=== PATIENT | female | born 1990 | race Caucasian/White ===

== ENCOUNTER 2018-06-15 13:46 | Emergency (ER) | payer SELFPAY ==
[~2018-06-15] VITALS: Ht 167.6 cm; Wt 142.9 kg
--- NOTE | 2018-06-15 14:56 | PHYS DOC ---
Adult General Chief Complaint Chief Complaint: VISION PROBLEM HPI HPI 28 yo female presents with neck mass. Patient was seen at [facility] yesterday and was told that it was likely a lipoma but they weren't sure. They were going to admit her but then they did not. The patient comes in today because she is concerned this needs further workup. She does not have insurance. She feels like there might be something in her throat is concerned this mass is bigger than she realizes. 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 She's had a total hysterectomy. 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 She has not had any follow-up due to no insurance. She denies fever or chills. She may be having some shortness of breath when she lies down, but this is mostly what her roommate has told her versus how she feels. Roommate told her that she turned blue last night. Review of Systems Review of Systems Constitutional: Denies fever or chills [] Eyes: Denies change in visual acuity, redness, or eye pain [] HENT: Denies nasal congestion or sore throat. She feels like there is a lump in her throat. Posterior neck mass [] Respiratory: Denies cough or shortness of breath [] Cardiovascular: No additional information not addressed in HPI [] GI: Denies abdominal pain, nausea, vomiting, bloody stools or diarrhea [] : Denies dysuria or hematuria [] Musculoskeletal: Denies back pain or joint pain [] Integument: Denies rash or skin lesions [] Neurologic: Denies headache, focal weakness or sensory changes [] Endocrine: Denies polyuria or polydipsia [] All other systems were reviewed and found to be within normal limits, except as documented in this note. Allergies Allergies Allergies Coded Allergies Type Severity Reaction Last Updated Verified coconut oil Allergy Unknown 06/15/18 Yes fentanyl Allergy Unknown 06/15/18 Yes Uncoded Allergies Type Severity Reaction Last Updated Verified contrast dye Allergy Unknown 06/15/18 seafood Allergy Unknown 06/15/18 Physical Exam Physical Exam Constitutional: Well developed, well nourished, no acute distress, non-toxic appearance. [] HENT: Normocephalic, atraumatic, bilateral external ears normal, oropharynx moist, no oral exudates, nose normal. [] Eyes: PERRLA, EOMI, conjunctiva normal, no discharge. [] Neck: Normal range of motion, no tenderness, supple, no stridor. Patient has a 1.5 cm firm but mobile mass just left of her C7 vertebrae. It feels consistent with lipoma, but there is considerable overlying fat pad. [] Cardiovascular:Heart rate regular rhythm, no murmur [] Lungs & Thorax: Bilateral breath sounds clear to auscultation [] Abdomen: Bowel sounds normal, soft, no tenderness, no masses, no pulsatile masses. [] Skin: Warm, dry, no erythema, no rash. [] Back: No tenderness, no CVA tenderness. [] Extremities: No tenderness, no cyanosis, no clubbing, ROM intact, no edema. [] Neurologic: Alert and oriented X 3, normal motor function, normal sensory function, no focal deficits noted. [] Psychologic: Affect normal, judgement normal, mood normal. [] EKG EKG [] Radiology/Procedures Radiology/Procedures [] Impressions: CT SOFT TISSUE NECK WO CONTRST Indication: Lipoma or mass at the posterior neck, at about C5, has become larger in the last month. Patient is asymptomatic. Exposure: One or more of the following individualized dose reduction techniques were utilized for this examination: 1. Automated exposure control 2. Adjustment of the mA and/or kV according to patient size 3. Use of iterative reconstruction technique. Comparison: None are available. Contrast: None due to history of allergy FINDINGS: Soft tissue within the left maxillary sinus compatible with a polyp or mucous retention cyst. There is a fatty mass in the left deep posterior neck, just to the left of midline, at about the level of C5. Measures 4.1 cm x 2.7 cm x 3.6 cm. Contains homogeneous fatty density without solid nonfatty component. This is immediately superficial to the left trapezius muscle. Lung apices are clear. Central venous catheter identified in the right internal jugular vein and superior vena cava, partially visualized. No significant lymph node enlargement. Small hypodense nodule of the right thyroid gland measures 8 mm. IMPRESSION: 1. Fatty mass superficial to the left trapezius muscle, just to the left of the midline, compatible with a lipoma. 2. 8 mm hypodense right thyroid nodule. Electronically signed by: Fan Jack MD (06/15/2018 3:55 PM) [facility] DICTATED AND SIGNED BY: FAN JACK MD DATE: 06/15/18 1542 CC: JOSE GILBERT DO; PCP,GORAN ~ Course & Med Decision Making Course & Med Decision Making Pertinent Labs and Imaging studies reviewed. (See chart for details) Patient's CT shows a mass just posterior to the trapezius muscle. However skin also shows likelihood of lipoma. It was able review the [facility] documentation and they're concerned as they cannot definitively rule out liposarcoma and do recommend an outpatient MRI with contrast. I discussed this possibility with the patient as well as does having a biopsy. Patient will work on getting insurance and find a primary physician to coordinate these exams. Her labs are unremarkable. She is stable for discharge at this time. [] Dragon Disclaimer Dragon Disclaimer This electronic medical record was generated, in whole or in part, using a voice recognition dictation system. Departure Departure: Referrals: PCPGORAN (PCP) JOSE GILBERT DO Jun 15, 2018 14:56
[2018-06-15 15:22] LABS: BASO # 0.1 x10^3/uL (0.0-0.2); BASO % 1 % (0-3); EOS % 0 % (0-3); HEMATOCRIT 40.3 % (36.0-47.0); HEMOGLOBIN 13.5 g/dL (12.0-15.5); LYMPH # 0.8 x10^3/uL (1.0-4.8); LYMPH % 8 % (24-48); MEAN CORPUSCULAR HEMOGLOBIN 29 pg (25-35); MEAN CORPUSCULAR HGB CONC 34 g/dL (31-37); MEAN CORPUSCULAR VOLUME 85 fL (79-100); MONO # 0.3 x10^3/uL (0.0-1.1); MONO % 3 % (0-9); NEUT % 89 % (31-73); PLATELET COUNT 369 x10^3/uL (140-400); RED BLOOD COUNT 4.72 x10^6/uL (3.50-5.40); RED CELL DISTRIBUTION WIDTH 13.7 % (11.5-14.5); WHITE BLOOD COUNT 10.1 x10^3/uL (4.0-11.0)
[2018-06-15 15:34] LABS: ALBUMIN 3.6 g/dL (3.4-5.0); ALBUMIN/GLOBULIN RATIO 0.8 (1.0-1.7); CALCIUM 9.8 mg/dL (8.5-10.1); CREATININE 0.8 mg/dL (0.6-1.0); GFR 86.7; POTASSIUM 3.9 mmol/L (3.5-5.1); TOTAL BILIRUBIN 0.6 mg/dL (0.2-1.0); TOTAL PROTEIN 8.1 g/dL (6.4-8.2)
--- NOTE | 2018-06-15 15:59 | RAD ---
CT SOFT TISSUE NECK WO CONTRST Indication: Lipoma or mass at the posterior neck, at about C5, has become larger in the last month. Patient is asymptomatic. Exposure: One or more of the following individualized dose reduction techniques were utilized for this examination: 1. Automated exposure control 2. Adjustment of the mA and/or kV according to patient size 3. Use of iterative reconstruction technique. Comparison: None are available. Contrast: None due to history of allergy FINDINGS: Soft tissue within the left maxillary sinus compatible with a polyp or mucous retention cyst. There is a fatty mass in the left deep posterior neck, just to the left of midline, at about the level of C5. Measures 4.1 cm x 2.7 cm x 3.6 cm. Contains homogeneous fatty density without solid nonfatty component. This is immediately superficial to the left trapezius muscle. Lung apices are clear. Central venous catheter identified in the right internal jugular vein and superior vena cava, partially visualized. No significant lymph node enlargement. Small hypodense nodule of the right thyroid gland measures 8 mm. IMPRESSION: 1. Fatty mass superficial to the left trapezius muscle, just to the left of the midline, compatible with a lipoma. 2. 8 mm hypodense right thyroid nodule. Electronically signed by: Anupam Jack MD (06/15/2018 3:55 PM) [facility]
[2018-06-15 16:23] VITALS: BP 147/90
== END 2018-06-15 16:23 | disposition home or self-care (01) ==
LOC: ER 13:46
DX: R22.1 Localized swelling, mass and lump, neck (principal); E04.1 Nontoxic single thyroid nodule; Z88.8 Allergy status to other drugs, medicaments and biological substances; Z91.048 Other nonmedicinal substance allergy status; Z90.710 Acquired absence of both cervix and uterus
CPT/HCPCS: 36415; 70490; 80053; 85025; 99285-25

== ENCOUNTER 2018-08-29 19:15 | Emergency (ER) | payer SELFPAY ==
[~2018-08-29] VITALS: Ht 170.2 cm; Wt 150.0 kg
--- NOTE | 2018-08-29 19:53 | PHYS DOC ---
Past History Past Medical History: Anxiety, Cancer Past Surgical History: Appendectomy, Cholecystectomy, Hysterectomy, Oophorectomy, Tonsillectomy, Other Adult General Chief Complaint Chief Complaint: FLU SYMPTOM HPI HPI Patient is a 28 year old female who presents with complaint of cough, headache, and body aches. Patient states that her symptoms started 13 days ago. The patient states that she has had a migraine headache over the past 13 days and has been having intermittent fever during that time. Patient states her last fever was measured this morning at 101F. Patient states she took ibuprofen at that time and last took 650 mg of Tylenol 6 hours ago. Patient denies any chest pain or abdominal pain. Patient states that her cough has been productive of greenish sputum. Denies sore throat or nasal congestion. Headache is concentrated on the occipital scalp. Describes it as throbbing. Has also had intermittent loose stools but no vomiting. No recent travel. Review of Systems Review of Systems Constitutional: Fever, chills, myalgias[] Eyes: Denies change in visual acuity, redness, or eye pain [] HENT: Denies nasal congestion or sore throat [] Respiratory: Productive cough, denies shortness of breath[] Cardiovascular: Denies chest pain or edema[] GI: Diarrhea, denies abdominal pain, nausea, vomiting, or bloody stools[] : Denies dysuria or hematuria [] Musculoskeletal: Myalgias[] Integument: Denies rash or skin lesions [] Neurologic: Denies headache, focal weakness or sensory changes [] All other systems were reviewed and found to be within normal limits, except as documented in this note. Allergies Allergies Allergies Coded Allergies Type Severity Reaction Last Updated Verified cyclobenzaprine Allergy Severe 08/29/18 Yes ondansetron Allergy Severe Anaphylaxis 08/29/18 Yes Iodinated Contrast- Oral and IV Dye Allergy Intermediate 08/29/18 Yes coconut oil Allergy Intermediate 08/29/18 Yes fentanyl Allergy Intermediate 08/29/18 Yes latex Allergy Intermediate 08/29/18 Yes shellfish derived Allergy Intermediate 08/29/18 Yes Physical Exam Physical Exam Constitutional: Alert, afebrile, appears in moderate discomfort. [] HENT: Normocephalic, atraumatic, bilateral external ears normal, oropharynx moist, no oral exudates, nose normal. [] Eyes: PERRLA, EOMI, photophobia present, conjunctiva normal, no discharge. [] Neck: Normal range of motion, no tenderness, supple, no stridor. [] Cardiovascular: Tachycardia, regular rhythm, no murmur [] Lungs & Thorax: Bilateral breath sounds clear to auscultation [] Abdomen: Bowel sounds normal, soft, no tenderness, no masses, no pulsatile masses. [] Skin: Warm, dry, no erythema, no rash. [] Back: No tenderness, no CVA tenderness. [] Extremities: No tenderness, no cyanosis, no clubbing, ROM intact, no edema. [] Neurologic: Alert and oriented X 3, normal motor function, normal sensory function, no focal deficits noted. [] Current Patient Data Vital Signs Vital Signs Date Time Temp Pulse Resp B/P (MAP) Pulse Ox O2 Delivery O2 Flow Rate FiO2 08/29/18 19:20 98.5 111 22 99 Room Air Lab Results Laboratory Tests Test 08/29/18 19:20 Urine Collection Type Unknown Urine Color Straw Urine Clarity Clear Urine pH 7.5 Urine Specific [place] 1.015 Urine Protein Neg Urine Glucose (UA) Neg mg/dL Urine Ketones (Stick) Neg mg/dL Urine Blood Neg Urine Nitrite Neg Urine Bilirubin Neg Urine Urobilinogen Dipstick 0.2 mg/dL Urine Leukocyte Esterase Neg Urine RBC Occ /HPF Urine WBC 1-4 /HPF Urine Squamous Epithelial Cells Occ /LPF Urine Bacteria Few /HPF Urine Yeast Present /HPF Current Medications Medications (Trade) Dose Ordered Sig/Melva Route PRN Reason Start Time Stop Time Status Last Admin Dose Admin Sodium Chloride (Normal Saline Flush) 10 ml QSHIFT PRN IV AFTER MEDS AND BLOOD DRAWS 08/29/18 19:45 Sodium Chloride 1,000 ml @ 1,860 mls/hr Q33M IV 08/29/18 20:00 08/29/18 21:00 DC Ketorolac Tromethamine (Toradol 30mg Vial) 30 mg 1X ONCE IV 08/29/18 20:00 08/29/18 21:50 DC Ketorolac Tromethamine (Toradol Im) 60 mg 1X ONCE IM 08/29/18 21:45 08/29/18 22:00 DC 08/29/18 21:57 Levofloxacin (Levaquin) 750 mg 1X STAT PO 08/29/18 21:45 08/29/18 22:00 DC 08/29/18 21:57 Alprazolam (Xanax) 2 mg 1X ONCE PO 08/29/18 21:45 08/29/18 22:00 DC 08/29/18 21:45 Alprazolam (Xanax) 0.25 mg STK-MED ONCE .ROUTE 08/29/18 21:52 08/29/18 21:54 DC Alprazolam (Xanax) 2 mg 1X ONCE PO 08/29/18 22:15 08/29/18 22:16 DC 08/29/18 22:15 EKG EKG Rhythm strip interpretation by me: Heart rate 96, sinus rhythm, no ectopy[] Radiology/Procedures Radiology/[place] [address] IMAGING REPORT Signed PATIENT: ROBERTO JORDAN V ACCOUNT: [id number] : 1990 LOCATION: ER AGE: 28 SEX: F EXAM STATUS: REG ER ORD. PHYSICIAN: TIMBO MITCHELL MD REASON: cough PROCEDURE: PORTABLE CHEST 1V Indication:Cough, hx asthma
TECHNIQUE:Portable AP chest X-ray COMPARISON:None FINDINGS: Left chest wall Chemo-Port is seen with its tip in the SVC. Heart is normal in size. Prominent bronchovascular markings are seen. No focal consolidation or other lung abnormalities. Visualized bony thorax is within normal limits. IMPRESSION: Prominent bronchovascular markings may be secondary to bronchitis. Electronically signed by: Krishna Ashton DO (08/29/2018 9:02 PM) [facility] DICTATED AND SIGNED BY: KRISHNA ASHTON DO DATE: 08/29/182100 CC: TIMBO MITCHELL MD; NON,STAFF ~ [] Course & Med Decision Making Course & Med Decision Making Pertinent Labs and Imaging studies reviewed. (See chart for details) After speaking with patient, we initially agreed to check blood work, however the patient proved to be a very hard stick while in the emergency department. This is due to her previous cancer treatments and multiple blood draws in the past. After multiple failed attempts, the patient stated that she no longer wanted to receive any needle sticks and stated that she did not feel she needed he of blood work. Patient states that she feels well enough to receive treatment and would like to go home after treatment. The patient's symptoms were treated with IM Toradol and oral Xanax. Patient given additional Fioricet for migraine headache. Patient's chest x-ray shows evidence of bronchitis. Given the chronicity of symptoms and concern for development of pneumonia, the patient was started on oral Levaquin for treatment. Prescribed Levaquin and Fioricet for outpatient treatment. Recommended follow-up in the next 3-4 days with primary doctor for reevaluation and return to emergency department for any worsening symptoms. Patient was understanding and agreement with treatment plan. [] Dragon Disclaimer Dragon Disclaimer This electronic medical record was generated, in whole or in part, using a voice recognition dictation system. Departure Departure: Impression: Primary Impression: Cough in adult Additional Impression: Migraine headache Disposition: 01 HOME, SELF-CARE Condition: IMPROVED Referrals: NON,STAFF (PCP) Patient Instructions: Cough, Adult, Migraine Headache Additional Instructions: Follow-up the primary doctor in 3-4 days for reevaluation. Return to emergency department for any worsening symptoms. Scripts Butalb/Acetaminophen/Caffeine ([id number] 50-325-40) 1 Each Tablet 1 EACH PO Q6HRS PRN for HEADACHE, #20 TAB Prov: TIMBO MITCHELL MD 08/29/18 Levofloxacin (LEVAQUIN) 750 Mg Tablet 1 TAB PO DAILY, #5 TAB Prov: TIMBO MITCHELL MD 08/29/18 Problem Qualifiers Additional Impression: Migraine headache Migraine type: unspecified Status migrainosus presence: with status migrainosus Intractability: not intractable Qualified Codes: G43.901 - Migraine, unspecified, not intractable, with status migrainosus TIMBO MITCHELL MD Aug 29, 2018 19:53
[2018-08-29] MEDS: IV NORMAL SALINE 1,000ML 1,000 ML IV SCH ×2 (20:00→20:33)
[2018-08-29] MEDS ORDERED: KETOROLAC 30 MG/ML VIAL. IV ONE (20:00)
[2018-08-29] MEDS ORDERED: ALPR2TAB2 PO (20:51)
[2018-08-29] MEDS ORDERED: DIPH25CA58 PO (20:51)
[2018-08-29] MEDS ORDERED: ZOLP12.52 PO (20:51)
--- NOTE | 2018-08-29 21:06 | RAD ---
Indication:Cough, hx asthma
TECHNIQUE:Portable AP chest X-ray COMPARISON:None FINDINGS: Left chest wall Chemo-Port is seen with its tip in the SVC. Heart is normal in size. Prominent bronchovascular markings are seen. No focal consolidation or other lung abnormalities. Visualized bony thorax is within normal limits. IMPRESSION: Prominent bronchovascular markings may be secondary to bronchitis. Electronically signed by: Krishna Chaudhary DO (08/29/2018 9:02 PM) [facility]
[2018-08-29 21:13] LABS: BACTERIA,URINE FEW /HPF (0-FEW); BILIRUBIN,URINE NEG (NEG); CLARITY,URINE CLEAR; COLOR,URINE STRAW; GLUCOSE,URINE NEG (NEG); NITRITE,URINE NEG (NEG); SQUAMOUS EPITHELIAL CELL,UR OCC /LPF; UROBILINOGEN,URINE 0.2 mg/dL (0.2 mg/dL); YEAST,URINE PRESENT /HPF
[2018-08-29 21:14] LABS: RBC,URINE OCC /HPF (0-2)
[2018-08-29] MEDS ORDERED: levoFLOXacin 750 MG TABLET PO STA (21:45)
[2018-08-29] MEDS ORDERED: KETOROLAC 60 MG/2 ML VIAL. IM ONE (21:45)
[2018-08-29] MEDS ORDERED: ALPRAZolam 0.5 MG TABLET PO ONE (21:45)
[2018-08-29] MEDS: 0.9 % SODIUM CHLORIDE 10 ML DISP.SYRIN. IV PRN ×2 (21:50→22:22)
[2018-08-29] MEDS ORDERED: ALPRAZolam 0.25 MG TABLET ONE (21:52)
[2018-08-29] MEDS ORDERED: ALPRAZolam 0.25 MG TABLET PO ONE (22:15)
[2018-08-29] MEDS ORDERED: BUTA1TAB23 PO (22:33)
[2018-08-29] MEDS ORDERED: LEVO750T31 PO (22:33)
[2018-08-29 23:00] VITALS: BP 117/76
[2018-08-29] MEDS ORDERED: BUTALB/APAP/CAFEIN 50/325/40MG TABLET. PO ONE (23:00)
[2018-08-30] MEDS ORDERED: PRED-220 PO (22:09)
== END 2018-08-29 23:05 | disposition home or self-care (01) ==
LOC: ER 19:15
DX: G43.901 Migraine, unspecified, not intractable, with status migrainosus (principal); J40 Bronchitis, not specified as acute or chronic; J45.909 Unspecified asthma, uncomplicated; F41.9 Anxiety disorder, unspecified; Z91.041 Radiographic dye allergy status; Z91.040 Latex allergy status; Z91.013 Allergy to seafood; Z88.8 Allergy status to other drugs, medicaments and biological substances; Z91.048 Other nonmedicinal substance allergy status
CPT/HCPCS: 71045; 81001; 96372; 99284; J1885

== ENCOUNTER 2018-08-30 15:31 | Emergency (ER) | payer SELFPAY ==
[~2018-08-30] VITALS: Ht 170.2 cm; Wt 150.0 kg
[~2018-08-30 15:31] MED LIST: ALPR2TAB2 PO; BUTA1TAB23 PO; DIPH25CA58 PO; LEVO750T31 PO; ZOLP12.52 PO
--- NOTE | 2018-08-30 16:01 | PHYS DOC ---
Past History Past Medical History: Asthma, Other Past Surgical History: Appendectomy, Hysterectomy, Other Alcohol Use: None Drug Use: None Adult General Chief Complaint Chief Complaint: COUGH HPI HPI Patient is a 28-year-old female who presents with complaint of productive cough with small amount of blood that she saw this morning. Patient states that she had also gone to the bathroom today and had a syncopal episode in the bathroom. Patient states that she was seen here yesterday and was prescribed antibiotics. Patient states that she doesn't feel like she is getting any better. Review of Systems Review of Systems Constitutional: Denies fever or chills [] Respiratory: Complains of cough and shortness of breath [] Cardiovascular: No additional information not addressed in HPI [] GI: Denies abdominal pain, nausea, vomiting or diarrhea [] Musculoskeletal: Denies back pain or joint pain [] Integument: Denies rash or skin lesions [] All other systems were reviewed and found to be within normal limits, except as documented in this note. Current Medications Current Medications Current Medications Medications (Trade) Dose Ordered Sig/Melva Start Time Stop Time Status Last Admin Dose Admin Albuterol/ Ipratropium (Duoneb) 3 ml 1X ONCE 08/30/18 16:00 08/30/18 16:01 UNV Allergies Allergies Allergies Coded Allergies Type Severity Reaction Last Updated Verified cyclobenzaprine Allergy Severe 08/29/18 Yes ondansetron Allergy Severe Anaphylaxis 08/29/18 Yes Iodinated Contrast- Oral and IV Dye Allergy Intermediate 08/29/18 Yes coconut oil Allergy Intermediate 08/29/18 Yes fentanyl Allergy Intermediate 08/29/18 Yes latex Allergy Intermediate 08/29/18 Yes shellfish derived Allergy Intermediate 08/29/18 Yes Physical Exam Physical Exam Constitutional: Well developed, well nourished, no acute distress, non-toxic appearance. [] HENT: Normocephalic, atraumatic, bilateral external ears normal, oropharynx moist, no oral exudates, nose normal. [] Eyes: PERRLA, EOMI, conjunctiva normal, no discharge. [] Neck: Normal range of motion, no tenderness, supple, no stridor. [] Cardiovascular: Regular rate and rhythm, no murmur [] Lungs & Thorax: There are fine rhonchi noted in the lung bases bilaterally[] Abdomen: Bowel sounds normal, soft. [] Skin: Warm, dry, no erythema, no rash. [] Extremities: No tenderness, no cyanosis, no clubbing, ROM intact, no edema. [] Neurologic: Alert and oriented X 3, normal motor function, normal sensory function, no focal deficits noted. [] Current Patient Data Vital Signs Vital Signs Date Time Temp Pulse Resp B/P (MAP) Pulse Ox O2 Delivery O2 Flow Rate FiO2 08/30/18 15:31 98.1 109 20 99 EKG EKG [] Radiology/Procedures Radiology/Procedures [] Impressions: Chest x-ray demonstrates no acute process. CTA scan of the Chest with Contrast (Pulmonary Embolism protocol) 08/30/2018 Clinical History: Chest pain and shortness of breath. Elevated d-dimer. Technique: After the intravenous administration of 75 cc of Omnipaque 300, contiguous, 0.625 mm axial sections were obtained through the chest. 2.5 mm axial and 3D MIP coronal and sagittal reconstructed images were obtained. One or more of the following individualized dose reduction techniques were utilized for this study: 1. Automated exposure control. 2. Adjustment of the mA and/or kV according to patient size. 3. Use of iterative reconstruction technique. One or more of the following individualized dose reduction techniques were utilized for this study: 1. Automated exposure control. 2. Adjustment of the mA and/or kV according to patient size. 3. Use of iterative reconstruction technique. Findings: No filling defect is seen within the major branches of either pulmonary artery. There is no CT evidence of pulmonary embolism. The heart is borderline enlarged. The thoracic aorta tapers normally. Minimal dependent subsegmental atelectasis is seen involving both lungs. No acute pulmonary infiltrate, pleural effusion or pneumothorax is seen. Impression: There is no CT evidence of pulmonary embolism. Electronically signed by: Delta Ronquillo MD (08/30/2018 9:29 PM) [facility] DICTATED AND SIGNED BY: DELTA RONQUILLO MD DATE: 08/30/182123 CC: JOSE GILBERT DO; NON,STAFF Course & Med Decision Making Course & Med Decision Making Pertinent Labs and Imaging studies reviewed. (See chart for details) Patient moved to room upon arrival was evaluated by medical staff after which an IV was established and blood work drawn. Patient's white count is returned unremarkable and chest x-ray looks clear. Have added on a d-dimer and still waiting on metabolic panel. At this time, remainder of workup is pending and patient is being signed out to oncoming ER physician, Dr. Gilbert at 6:30 PM. Given the patient's elevated d-dimer, history of PE and tachycardia, I have ordered a CTA of the chest. The CTA is negative. After second liter, the patient 's tachycardia has improved. It appears as though she is just suffering from a viral respiratory illness. She is stable for discharge at this time. Dragon Disclaimer Dragon Disclaimer This electronic medical record was generated, in whole or in part, using a voice recognition dictation system. Departure Departure: Referrals: NON,STAFF (PCP) Scripts Prednisone (PREDNISONE) 10 Mg Tablet 40 MG PO DAILY for cough for 3 Days, #12 TAB Prov: JOSE GILBERT DO 08/30/18 SOLITARIO SCHREIBER Jr. DO Aug 30, 2018 16:01 JOSE GILBERT DO Aug 30, 2018 21:51
[2018-08-30] MEDS: IPRATRPIUM/ALBUTEROL 0.5/2.5MG 3 ML NEBU. NEB ONE (16:28)
[2018-08-30] MEDS: IV NORMAL SALINE 1,000ML 1,000 ML IV SCH (16:42)
[2018-08-30 16:45] LABS: BASO % 0 % (0-3); EOS # 0.1 x10^3/uL (0.0-0.7); EOS % 2 % (0-3); HEMOGLOBIN 12.2 g/dL (12.0-15.5); LYMPH # 1.5 x10^3/uL (1.0-4.8); LYMPH % 18 % (24-48); MEAN CORPUSCULAR HEMOGLOBIN 28 pg (25-35); MEAN CORPUSCULAR HGB CONC 32 g/dL (31-37); MEAN CORPUSCULAR VOLUME 87 fL (79-100); MONO # 0.7 x10^3/uL (0.0-1.1); MONO % 9 % (0-9); NEUT # 5.7 x10^3uL (1.8-7.7); NEUT % 71 % (31-73); PLATELET COUNT 356 x10^3/uL (140-400); RED BLOOD COUNT 4.38 x10^6/uL (3.50-5.40); RED CELL DISTRIBUTION WIDTH 13.3 % (11.5-14.5)
--- NOTE | 2018-08-30 16:52 | EKG ---
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
[2018-08-30 17:13] LABS: INFLUENZA A PATIENT NEGATIVE (NEGATIVE); INFLUENZA B PATIENT NEGATIVE (NEGATIVE)
--- NOTE | 2018-08-30 17:18 | RAD ---
EXAM: PA and Lateral Views of the Chest DATE: 08/30/2018 4:17 PM INDICATION: short of breath,cough, hx of asthma, hx of ovarian ca, pt shielded COMPARISON: 08/29/2018 FINDINGS: Right Port-A-Cath tip projects over the distal SVC. The heart is not enlarged. Mediastinal and hilar contours are normal. No focal parenchymal airspace opacity. No pleural effusion or pneumothorax. IMPRESSION: No evidence of acute cardiac pulmonary process. Electronically signed by: Collin Nava MD (08/30/2018 5:14 PM) [facility]
[2018-08-30] MEDS: LORazepam 2 MG/ML VIAL IV ONE ×2 (18:10→20:24)
[2018-08-30 18:22] LABS: ALBUMIN/GLOBULIN RATIO 0.8 (1.0-1.7); CALCIUM 8.8 mg/dL (8.5-10.1); CREATININE 0.8 mg/dL (0.6-1.0); GFR 86.7; POTASSIUM 3.6 mmol/L (3.5-5.1); TOTAL BILIRUBIN 0.4 mg/dL (0.2-1.0); TOTAL PROTEIN 6.9 g/dL (6.4-8.2)
[2018-08-30] MEDS: IV NORMAL SALINE 1,000ML 1,000 ML IV ONE (18:37)
[2018-08-30 19:09] VITALS: BP 133/87
[2018-08-30 19:09] LABS: U PREG PATIENT NEGATIVE (NEG)
[2018-08-30] MEDS: diphenhydrAMINE 50 MG/ML VIAL IVP ONE ×2 (20:11→21:30)
[2018-08-30] MEDS: methylPREDNISolone SOD SUCC PF 125 MG/2 ML VIAL. IV ONE (20:11)
[2018-08-30] MEDS: KETOROLAC 30 MG/ML VIAL. IV ONE (20:15)
[2018-08-30] MEDS: METOCLOPRAMIDE HCL 10 MG/2 ML VIAL. IV ONE (20:25)
[2018-08-30] MEDS: IOHEXOL 300 MG/ML 50 ML VIAL. IV ONE ×2 (21:00)
[2018-08-30] MEDS ORDERED: FAMOTIDINE 20 MG/2 ML VIAL ONE (21:18)
[2018-08-30] MEDS: FAMOTIDINE 20 MG/2 ML VIAL IVP ONE (21:30)
--- NOTE | 2018-08-30 21:33 | RAD ---
CTA scan of the Chest with Contrast (Pulmonary Embolism protocol) 08/30/2018 Clinical History: Chest pain and shortness of breath. Elevated d-dimer. Technique: After the intravenous administration of 75 cc of Omnipaque 300, contiguous, 0.625 mm axial sections were obtained through the chest. 2.5 mm axial and 3D MIP coronal and sagittal reconstructed images were obtained. One or more of the following individualized dose reduction techniques were utilized for this study: 1. Automated exposure control. 2. Adjustment of the mA and/or kV according to patient size. 3. Use of iterative reconstruction technique. One or more of the following individualized dose reduction techniques were utilized for this study: 1. Automated exposure control. 2. Adjustment of the mA and/or kV according to patient size. 3. Use of iterative reconstruction technique. Findings: No filling defect is seen within the major branches of either pulmonary artery. There is no CT evidence of pulmonary embolism. The heart is borderline enlarged. The thoracic aorta tapers normally. Minimal dependent subsegmental atelectasis is seen involving both lungs. No acute pulmonary infiltrate, pleural effusion or pneumothorax is seen. Impression: There is no CT evidence of pulmonary embolism. Electronically signed by: Delta Ronquillo MD (08/30/2018 9:29 PM) [facility]
[2018-08-30] MEDS ORDERED: PRED-220 PO (22:09)
== END 2018-08-30 22:10 | disposition home or self-care (01) ==
LOC: ER 15:31
DX: R55 Syncope and collapse (principal); R00.0 Tachycardia, unspecified; R05 Cough; R06.02 Shortness of breath; R79.1 Abnormal coagulation profile; J45.909 Unspecified asthma, uncomplicated; Z86.711 Personal history of pulmonary embolism; Z88.8 Allergy status to other drugs, medicaments and biological substances; Z91.041 Radiographic dye allergy status; Z88.4 Allergy status to anesthetic agent; Z91.040 Latex allergy status; Z91.013 Allergy to seafood; Z91.048 Other nonmedicinal substance allergy status
CPT/HCPCS: 36415; 71046; 71275; 80053; 81025; 83605; 85025; 85379; 87040; 87804; 93005; 94640; 96361; 96374; 96375; 96376; 99284; J1200; J1885; J2060; J2765; J2930; J3490; J7620; Q9967; J7030